=== PATIENT | male | born 1980 | race Two or more races ===

== ENCOUNTER 2021-09-13 10:18 | Emergency (ER) | payer SELFPAY ==
[~2021-09-13] VITALS: Ht 180.3 cm; Wt 61.2 kg
[2021-09-13] MEDS ORDERED: PENI500T PO (10:38)
--- NOTE | 2021-09-13 10:41 | NUR ---
BIBSELF C/O GUM SWELLING AND PAIN X3DAYS P/S /. DENIES SOB. RESPIRATION REGULAR AND UNLABORED. WILL CONTINUE TO MONITOR THE PATIENT.
[2021-09-13 10:42] VITALS: BP 115/71
--- NOTE | 2021-09-13 10:42 | NUR ---
Patient discharged to home in stable condition. Written and verbal after care instructions given. Patient verbalizes understanding of instruction.
== END 2021-09-13 10:42 | disposition home or self-care (01) ==
LOC: ER 10:23
DX: K08.89 Other specified disorders of teeth and supporting structures (principal)